=== PATIENT | female | born 1980 | race Caucasian/White ===

== ENCOUNTER 2017-02-19 22:24 | Emergency (ER) | payer OTHER ==
[~2017-02-19] VITALS: Ht 165.1 cm; Wt 59.0 kg
[~2017-02-19 22:24] MED LIST: ATOM40CA OR; CELE10TA PO; CITA20TA4 PO; CLON0.5T PO; CLON1TAB PO; FOCA2.5T PO; FOCA40CA PO; LYRI300C PO; MINI2CAP PO; No Historical Meds; SUBOXONE PO; TENEX OR; TRAZ100T OR; TRAZ50TA4 PO
[2017-02-19 22:25] VITALS: BP 147/89
== END 2017-02-20 02:06 | disposition left against medical advice (07) ==
LOC: M ED 02-20 01:10
DX: Z53.21 Procedure and treatment not carried out due to patient leaving prior to being seen by health care provider (principal)

== ENCOUNTER 2017-03-12 20:39 | Emergency (ER) | payer OTHER ==
[2017-03-12] MEDS ORDERED: NICOTINE 21MG/24HR 1 EA TRANSDERMAL TD ONE ×2 (21:15)
[2017-03-12] MEDS ORDERED: ACETAMINOPHEN TAB 650MG DOSE (2X325MG) PO ONE (21:45)
--- NOTE | 2017-03-12 22:10 | REPUSA ---
CT of the head Clinical history: trauma. Technique: Multiple axial CT images were obtained through the head without administration of contrast . Comparison: None. Findings: The ventricles and sulci are symmetric bilaterally. There is no evidence of acute hemorrhag e or infarct. There is no midline shift, mass effect, or extra-axial fluid collection. The osseous st ructures are unremarkable. The visualized paranasal sinuses and mastoid air cells are clear. Impression: Negative study.
--- NOTE | 2017-03-12 22:20 | REPUSA ---
CT of the facial bones without contrast Clinical history: Pain, injury. Technique: Multiple axial CT images were obtained through the facial bones and paranasal sinuses util izing 3 mm axial slices without administration of contrast. Coronal and sagittal reconstructions were also obtained. Findings: The visualized paranasal sinuses are clear. The osteomeatal complexes are patent bilaterall y. The nasal septum is deviated rightward. The visualized mastoid air cells are clear. Bilateral nond isplaced nasal bone fractures are noted. The other osseous structures do not demonstrate any acute ab normalities. The superficial soft tissues are within normal limits. Impression: Acute, nondisplaced bilateral nasal bone fractures. The paranasal sinuses are clear.
[2017-03-12 22:32] VITALS: BP 129/79
[2017-03-12 22:40] LABS: METHADONE URINE NEGATIVE (NEGATIVE)
== END 2017-03-12 22:51 | disposition home or self-care (01) ==
LOC: M ED 22:36
DX: F10.129 Alcohol abuse with intoxication, unspecified (principal); S02.2XXA Fracture of nasal bones, initial encounter for closed fracture; X58.XXXA Exposure to other specified factors, initial encounter; Y92.89 Other specified places as the place of occurrence of the external cause; Y93.89 Activity, other specified; Y99.9 Unspecified external cause status

== ENCOUNTER → 2017-12-22 | Outpatient (REF) | payer OTHER, MEDICAID | LOC: M LAB REF 20:02 | DX: F11.21 Opioid dependence, in remission (principal) | CPT/HCPCS: 80362 ==

== ENCOUNTER → 2017-12-30 | Outpatient (REF) | payer OTHER, MEDICAID | LOC: M LAB REF 17:32 | DX: F11.21 Opioid dependence, in remission (principal) ==

== ENCOUNTER → 2018-01-04 | Outpatient (REF) | payer OTHER, MEDICAID | LOC: M LAB REF 16:59 | DX: F11.21 Opioid dependence, in remission (principal) ==

== ENCOUNTER → 2018-01-05 | Outpatient (REF) | payer OTHER, MEDICAID | LOC: M LAB REF 17:31 | DX: F11.21 Opioid dependence, in remission (principal) | CPT/HCPCS: 80362 ==

== ENCOUNTER → 2018-01-20 | Outpatient (CLI) | payer MEDICAID | LOC: M OUTALCOH 09:40 | DX: F11.20 Opioid dependence, uncomplicated (principal); F15.20 Other stimulant dependence, uncomplicated ==

== ENCOUNTER → 2018-01-26 | Outpatient (REF) | payer MEDICAID | LOC: M LAB REF 16:51 | DX: F11.21 Opioid dependence, in remission (principal) ==

== ENCOUNTER 2018-02-10 13:15 | Outpatient (RCR) | payer MEDICAID | END 2018-03-10 | LOC: M OUTALCOH 13:15 | DX: F11.20 Opioid dependence, uncomplicated (principal); F15.20 Other stimulant dependence, uncomplicated; F17.200 Nicotine dependence, unspecified, uncomplicated ==

== ENCOUNTER → 2018-02-23 | Outpatient (REF) | payer MEDICAID ==
[2018-03-02 14:16] LABS: AMPHETAMINE SCREEN, URINE Negative ng/mL (Cutoff=1000); BARBITURATES SCREEN, URINE Negative ng/mL (Cutoff=200); BENZODIAZEPINES, URINE SCREEN Negative ng/mL (Cutoff=200); CANNABINOID SCREEN, URINE See Final Results ng/mL (Cutoff=20); CANNABINOID, URINE Negative (Cutoff=20); COCAINE SCREEN, URINE Negative ng/mL (Cutoff=300); CREATININE, URINE 183.3 mg/dL (20.0-300.0); FENTANYL URINE SCREEN Negative pg/mL (Cutoff=2000); METHADONE, URINE SCREEN Negative ng/mL (Cutoff=300); NALOXONE RESULT Positive (.); OPIATE SCREEN, URINE Negative ng/mL (Cutoff=300); OXYCODONE, SCREEN, URINE Negative ng/mL (Cutoff=100); PCP SCREEN, URINE Negative ng/mL (Cutoff=25); SPECIFIC GRAVITY, URINE 1.024 (.); URINE BUPRENORPHINE Positive (.); URINE BUPRENORPHINE Positive (Cutoff=10); URINE BUPRENORPHINE See Final Results ng/mL (Cutoff=10); URINE BUPRENORPHINE CONFIRM 148 ng/mL (Cutoff=10); URINE NORBUPRENORPHINE Positive (.); URINE NORBUPRENORPHINE CONFIRM 656 ng/mL (Cutoff=10); pH, URINE 5.7 (4.5-8.9)
== END ==
LOC: M LAB REF 09:47
DX: F11.21 Opioid dependence, in remission (principal)
CPT/HCPCS: 80362

== ENCOUNTER → 2018-03-09 | Outpatient (REF) | payer MEDICAID ==
[2018-03-16 08:06] LABS: AMPHETAMINE SCREEN, URINE See Final Results ng/mL (Cutoff=1000); AMPHETAMINE, URINE GC/MS >4000 ng/mL (Cutoff=500); AMPHETAMINES , URINE Positive (.); AMPHETAMINES , URINE Positive (Cutoff=1000); BARBITURATES SCREEN, URINE Negative ng/mL (Cutoff=200); BENZODIAZEPINES, URINE SCREEN Negative ng/mL (Cutoff=200); CANNABINOID SCREEN, URINE See Final Results ng/mL (Cutoff=20); CANNABINOID, URINE Positive (Cutoff=20); CARBOXY THC (GC/MS) 27 ng/mL (Cutoff=10); COCAINE SCREEN, URINE Negative ng/mL (Cutoff=300); CREATININE, URINE 263.7 mg/dL (20.0-300.0); FENTANYL URINE SCREEN Negative pg/mL (Cutoff=2000); METHADONE, URINE SCREEN Negative ng/mL (Cutoff=300); METHAMPHETAMINE, URINE Negative (Cutoff=500); OPIATE SCREEN, URINE Negative ng/mL (Cutoff=300); OXYCODONE, SCREEN, URINE Negative ng/mL (Cutoff=100); PCP SCREEN, URINE Negative ng/mL (Cutoff=25); SPECIFIC GRAVITY, URINE 1.022 (.); pH, URINE 5.4 (4.5-8.9)
== END ==
LOC: M LAB REF 17:00
DX: F11.21 Opioid dependence, in remission (principal)

== ENCOUNTER → 2018-05-02 | Outpatient (CLI) | payer MEDICAID | LOC: M OUTALCOH 07:45 | DX: F11.20 Opioid dependence, uncomplicated (principal); F15.20 Other stimulant dependence, uncomplicated ==

== ENCOUNTER → 2018-05-27 | Outpatient (REF) | payer MEDICAID ==
[2018-06-04 11:31] LABS: AMPHETAMINE SCREEN, URINE See Final Results ng/mL (Cutoff=1000); AMPHETAMINE, URINE GC/MS >4000 ng/mL (Cutoff=500); AMPHETAMINES , URINE Positive (.); AMPHETAMINES , URINE Positive (Cutoff=1000); BARBITURATES SCREEN, URINE Negative ng/mL (Cutoff=200); BENZODIAZEPINES, URINE SCREEN Negative ng/mL (Cutoff=200); CANNABINOID SCREEN, URINE Negative ng/mL (Cutoff=20); COCAINE SCREEN, URINE Negative ng/mL (Cutoff=300); CREATININE, URINE 288.5 mg/dL (20.0-300.0); FENTANYL URINE SCREEN Negative pg/mL (Cutoff=2000); METHADONE, URINE SCREEN Negative ng/mL (Cutoff=300); METHAMPHETAMINE, URINE Negative (Cutoff=500); OPIATE SCREEN, URINE Negative ng/mL (Cutoff=300); OXYCODONE, SCREEN, URINE Negative ng/mL (Cutoff=100); PCP SCREEN, URINE Negative ng/mL (Cutoff=25); SPECIFIC GRAVITY, URINE 1.018 (.); pH, URINE 5.6 (4.5-8.9)
== END ==
LOC: M LAB REF 19:20
DX: F11.21 Opioid dependence, in remission (principal)
CPT/HCPCS: 80307

== ENCOUNTER 2018-06-14 11:30 | Outpatient (RCR) | payer MEDICAID | END 2018-07-10 | LOC: M OUTALCOH 11:30 | DX: F11.20 Opioid dependence, uncomplicated (principal); F15.20 Other stimulant dependence, uncomplicated; F17.200 Nicotine dependence, unspecified, uncomplicated ==

== ENCOUNTER 2019-09-01 16:17 | Emergency (ER) | payer MEDICAID, OTHER ==
[~2019-09-01] VITALS: Ht 167.6 cm; Wt 72.7 kg
[~2019-09-01 16:17] MED LIST changes: -CITA20TA4 PO; +CITA20TA6 PO; -CLON0.5T PO; +CLON0.5T2 PO; -CLON1TAB PO; +CLON1TAB8 PO; +TRAZ-252 PO; -TRAZ50TA4 PO
[2019-09-01 16:23] VITALS: BP 138/77
[2019-09-01] MEDS ORDERED: LYRI200C PO (17:11)
[2019-09-01] MEDS ORDERED: GABA-843 PO (17:11)
== END 2019-09-01 18:54 | disposition home or self-care (01) ==
LOC: M ED 16:17
DX: F15.10 Other stimulant abuse, uncomplicated (principal); F17.210 Nicotine dependence, cigarettes, uncomplicated; Z88.0 Allergy status to penicillin; Z79.899 Other long term (current) drug therapy

== ENCOUNTER 2020-01-12 07:29 | Emergency (ER) | payer MEDICAID, OTHER ==
[~2020-01-12] VITALS: Ht 167.6 cm; Wt 70.8 kg
[~2020-01-12 07:29] MED LIST changes: +GABA-843 PO; +LYRI200C PO
[2020-01-12] MEDS ORDERED: HYDR50CA2 (07:40)
[2020-01-12] MEDS ORDERED: SERO50TA (07:40)
[2020-01-12] MEDS ORDERED: NS 1,000 ML IV ONE (07:45)
[2020-01-12 08:05] LABS: BASO % 0.1 % (0.0-1.0); EOS # 0.1 10^3/uL (0.0-0.5); EOS % 1.6 % (0.0-3.0); HEMATOCRIT 40.5 % (36.0-47.0); HEMOGLOBIN 13.7 g/dl (12.0-15.5); LYMPH # 2.7 10^3/uL (1.5-5.0); LYMPH % 39.3 % (24.0-44.0); MEAN CORPUSCULAR HEMOGLOBIN 30.4 pg (27.0-33.0); MEAN CORPUSCULAR HGB CONC 33.8 g/dl (32.0-36.5); MONO # 0.4 10^3/uL (0.0-0.8); MONO % 5.3 % (0.0-5.0); NEUTROPHILS # 3.7 10^3/uL (1.5-8.5); NEUTROPHILS % 53.6 % (36.0-66.0); PLATELET COUNT, AUTOMATED 375 10^3/uL (150-450); WHITE BLOOD COUNT 6.9 10^3/uL (4.0-10.0)
[2020-01-12 08:36] LABS: ACETAMINOPHEN LEVEL < 2.0 UG/ML (10.0-30.0); ALBUMIN 3.7 GM/DL (3.2-5.2); ALT/SGPT 39 U/L (12-78); BILIRUBIN,DIRECT 0.2 MG/DL (0.0-0.2); BILIRUBIN,TOTAL 0.6 MG/DL (0.2-1.0); BLOOD UREA NITROGEN 12 MG/DL (7-18); CALCIUM LEVEL 8.8 MG/DL (8.5-10.1); CARBON DIOXIDE LEVEL 27 MEQ/L (21-32); CHLORIDE LEVEL 107 MEQ/L (98-107); CK-MB VALUE MASS 15.6 NG/ML (<3.6); CPK CREATINE PHOSPHOKINASE 327 U/L (26-192); CREATININE FOR GFR 0.75 MG/DL (0.55-1.30); ETHYL ALCOHOL (ETHANOL) 0.004 % (0.000-0.010); GLOMERULAR FILTRATION RATE > 60.0 (>60); GLUCOSE, FASTING 116 MG/DL (70-100); MB/CK RELATIVE INDEX 4.77 (< OR =4); POTASSIUM SERUM 3.6 MEQ/L (3.5-5.1); SALICYLATE LEVEL 2.3 MG/DL (5.0-30.0); SODIUM LEVEL 142 MEQ/L (136-145); TOTAL PROTEIN 7.4 GM/DL (6.4-8.2); TROPONIN I < 0.02 NG/ML (< 0.10)
[2020-01-12 09:19] LABS: HCG, SERUM QUALITATIVE NEGATIVE (NEGATIVE)
[2020-01-12 09:43] LABS: AMPHETAMINES LEVEL URINE POSITIVE (NEGATIVE); BARBITURATES URINE NEGATIVE (NEGATIVE); BENZODIAZEPINES URINE NEGATIVE (NEGATIVE); CANNABINOIDS URINE POSITIVE (NEGATIVE); COCAINE METABOLITE URINE NEGATIVE (NEGATIVE); METHADONE URINE NEGATIVE (NEGATIVE); OPIATES URINE NEGATIVE (NEGATIVE); PHENCYCLIDINE URINE NEGATIVE (NEGATIVE)
[2020-01-12 09:53] VITALS: BP 136/91
--- NOTE | 2020-01-12 10:08 | REP ---
CHEST SINGLE VIEW: There is no evidence of acute infiltrate. No pleural effusion is seen. The heart is normal in size. The mediastinal silhouette is unremarkable. The visualized osseous structures are intact. IMPRESSION: No acute pulmonary disease. Electronically Signed by Edy Garcia MD 01/12/2020 10:40 A
--- NOTE | 2020-01-12 14:31 | ECGEPIP ---
[facility] - ED Test Date: 2020-01-12 Pat Name: FREDRICK SMILEY Department: Room: - Gender: Female [employer] Assistant: TYLER : 1980 Requested By: BERNADETTE FARIA PA-C. Order Number: [id number] Reading MD: Gilbert Lora Measurements Intervals [place] Rate: 67 P: 45 FL: 130 QRS: 71 QRSD: 97 T: 46 QT: 411 QTc: 434 Interpretive Statements SINUS RHYTHM WITH SINUS ARRHYTHMIA POOR R WAVE PROGRESSION NSTTW ABNORMALITIES NO PRIORS FOR COMPARISON Electronically Signed on 01-12-2020 14:30:52 EDT by Gilbert Lora
== END 2020-01-12 10:21 | disposition home or self-care (01) ==
LOC: M ED 07:29 → EDBD 07:29 → M ED 10:21
DX: R07.89 Other chest pain (principal); F15.10 Other stimulant abuse, uncomplicated; F12.10 Cannabis abuse, uncomplicated; F41.9 Anxiety disorder, unspecified; F32.9 Major depressive disorder, single episode, unspecified; Z88.0 Allergy status to penicillin
CPT/HCPCS: 71045; 80047; 80048; 80076; 80307; 82550; 82553; 84443; 84703; 85025; 93005; 93041; 94760; 99285; G0480

== ENCOUNTER 2021-11-21 20:11 | Emergency (ER) | payer OTHER ==
[~2021-11-21 20:11] MED LIST changes: +GABA-282 PO; -GABA-843 PO; +HYDR50CA2; +SERO50TA
[2021-11-21] MEDS ORDERED: PRENTAB7 (20:19)
[2021-11-21] MEDS ORDERED: SUBO12MI (20:19)
[2021-11-21 23:01] VITALS: BP 127/73
== END 2021-11-21 23:05 | disposition left against medical advice (07) ==
LOC: M ED 20:11
DX: Z53.21 Procedure and treatment not carried out due to patient leaving prior to being seen by health care provider (principal)

== ENCOUNTER 2021-12-26 07:27 | Emergency (ER) | payer OTHER ==
[~2021-12-26] VITALS: Ht 167.6 cm; Wt 61.0 kg
[~2021-12-26 07:27] MED LIST changes: +PRENTAB7; +SUBO12MI
[2021-12-26 08:43] LABS: HEMATOCRIT 43.7 % (36.0-47.0); HEMOGLOBIN 14.3 g/dl (12.0-15.5); MEAN CORPUSCULAR HEMOGLOBIN 30.9 pg (27.0-33.0); MEAN CORPUSCULAR HGB CONC 32.7 g/dl (32.0-36.5); MEAN CORPUSCULAR VOLUME 94.4 fl (80.0-96.0); PLATELET COUNT, AUTOMATED 241 10^3/uL (150-450); RED BLOOD COUNT 4.63 10^6/uL (4.00-5.40)
[2021-12-26 09:06] LABS: AMPHETAMINES LEVEL URINE NEGATIVE (NEGATIVE); BARBITURATES URINE NEGATIVE (NEGATIVE); BENZODIAZEPINES URINE NEGATIVE (NEGATIVE); CANNABINOIDS URINE POSITIVE (NEGATIVE); COCAINE METABOLITE URINE NEGATIVE (NEGATIVE); METHADONE URINE NEGATIVE (NEGATIVE); OPIATES URINE NEGATIVE (NEGATIVE); PHENCYCLIDINE URINE NEGATIVE (NEGATIVE)
[2021-12-26 09:08] LABS: HCG, SERUM QUALITATIVE NEGATIVE (NEGATIVE)
[2021-12-26 09:15] LABS: BLOOD UREA NITROGEN 9 MG/DL (7-18); CARBON DIOXIDE LEVEL 33 MEQ/L (21-32); CHLORIDE LEVEL 109 MEQ/L (98-107); CREATININE FOR GFR 0.72 MG/DL (0.55-1.30); GLOMERULAR FILTRATION RATE > 60.0 (>60); GLUCOSE, FASTING 91 MG/DL (70-100); POTASSIUM SERUM 4.5 MEQ/L (3.5-5.1); SODIUM LEVEL 144 MEQ/L (136-145)
[2021-12-26 09:16] LABS: ACETAMINOPHEN LEVEL < 2.0 UG/ML (10.0-30.0); ALBUMIN 3.7 GM/DL (3.2-5.2); ALT/SGPT 54 U/L (12-78); BILIRUBIN,DIRECT 0.1 MG/DL (0.0-0.2); BILIRUBIN,TOTAL 0.4 MG/DL (0.2-1.0); CALCIUM LEVEL 9.1 MG/DL (8.5-10.1); ETHYL ALCOHOL (ETHANOL) < 0.003 % (0.000-0.010); SALICYLATE LEVEL 4.2 MG/DL (5.0-30.0); TOTAL PROTEIN 7.3 GM/DL (6.4-8.2)
[2021-12-26 12:38] VITALS: BP 124/76
== END 2021-12-26 12:39 | disposition home or self-care (01) ==
LOC: M ED 07:27
DX: F43.0 Acute stress reaction (principal); F99 Mental disorder, not otherwise specified; F17.200 Nicotine dependence, unspecified, uncomplicated; Z79.899 Other long term (current) drug therapy; Z88.0 Allergy status to penicillin

== ENCOUNTER 2022-01-29 16:29 | Emergency (ER) | payer OTHER ==
[~2022-01-29] VITALS: Ht 165.1 cm; Wt 62.3 kg
[2022-01-29 17:05] VITALS: BP 154/97
[2022-01-29] MEDS ORDERED: BUPR1FIL3 SL (17:20)
== END 2022-01-29 21:42 | disposition left against medical advice (07) ==
LOC: M ED 16:29
DX: Z53.21 Procedure and treatment not carried out due to patient leaving prior to being seen by health care provider (principal)

== ENCOUNTER → 2022-08-25 | Outpatient (CLI) | payer OTHER ==
[~2022-08-25] MED LIST changes: +BUPR1FIL3 SL
[2022-08-25 18:03] LABS: BASO % 0.6 % (0.0-1.0); EOS # 0.5 10^3/uL (0.0-0.5); HEMATOCRIT 43.2 % (36.0-47.0); HEMOGLOBIN 13.8 g/dl (12.0-15.5); LYMPH # 3.1 10^3/uL (1.5-5.0); LYMPH % 43.3 % (24.0-44.0); MEAN CORPUSCULAR HEMOGLOBIN 29.4 pg (27.0-33.0); MEAN CORPUSCULAR HGB CONC 31.9 g/dl (32.0-36.5); MEAN CORPUSCULAR VOLUME 92.1 fl (80.0-96.0); MONO # 0.4 10^3/uL (0.0-0.8); MONO % 5.5 % (2.0-8.0); NEUTROPHILS # 3.1 10^3/uL (1.5-8.5); NEUTROPHILS % 43.3 % (36.0-66.0); PLATELET COUNT, AUTOMATED 298 10^3/uL (150-450); RED BLOOD COUNT 4.69 10^6/uL (4.00-5.40); WHITE BLOOD COUNT 7.3 10^3/uL (4.0-10.0)
[2022-08-25 20:51] LABS: ALT/SGPT 43 U/L (7.0-40); BILIRUBIN,TOTAL 0.4 MG/DL (0.3-1.2); BLOOD UREA NITROGEN 12 MG/DL (9-23); CALCIUM LEVEL 9.3 MG/DL (8.5-10.1); CARBON DIOXIDE LEVEL 30 MMOL/L (20-31); CHLORIDE LEVEL 103 MMOL/L (98-107); CREATININE FOR GFR 0.69 MG/DL (0.55-1.30); GLOMERULAR FILTRATION RATE > 60.0 (>58); GLUCOSE, FASTING 57 MG/DL (60-100); HEPATITIS B SURFACE ANTIBODY NEGATIVE (POSITIVE); HEPATITIS B SURFACE ANTIGEN NEGATIVE (NEGATIVE); POTASSIUM SERUM 4.2 MMOL/L (3.5-5.1); SODIUM LEVEL 142 MMOL/L (136-145); TOTAL PROTEIN 7.4 G/DL
== END ==
LOC: M PLALAB 14:23
PROVIDERS: ATTEND Internal Medicine Infectious Disease
DX: B18.2 Chronic viral hepatitis C (principal)

== ENCOUNTER → 2024-11-15 | Outpatient (REF) ==
[~2024-11-15] MED LIST changes: +GABA-1172 PO; -GABA-282 PO
== END ==
LOC: M PLAIMG 16:26
PROVIDERS: ATTEND Internal Medicine
DX: R52 Pain, unspecified (principal)